=== PATIENT | female | born 1930 | race Caucasian/White ===

== ENCOUNTER → 2020-07-28 | Outpatient (CLI) | payer MEDICARE, OTHER ==
[~2020-07-28] MED LIST: ALPR0.255 PO; LEVO100T6 PO; ONDA4TAB7 PO
[2020-07-28 16:42] LABS: BASOPHILS % (AUTO) 0.7 % (0.0-5.0); EOSINOPHILS % (AUTO) 6.1 % (0.0-8.0); HEMATOCRIT 34.8 % (36-48); LYMPHOCYTES % (AUTO) 12.3 % (21.0-51.0); MEAN CORPUSCULAR HGB CONC 32.5 g/dL (32.0-36.0); MEAN CORPUSCULAR VOLUME 98.6 fL (79-99); MONOCYTES % (AUTO) 9.7 % (3.0-13.0); NEUTROPHILS % (AUTO) 70.7 % (40.0-77.0); PLATELET COUNT (AUTO) 257 K/uL (130-400); RED BLOOD CELL COUNT(AUTO) 3.53 MIL/uL (4.00-5.50); RED CELL DISTRIBUTION WIDTH 12.6 % (11.0-15.5); WHITE BLOOD COUNT (AUTO) 8.6 K/uL (4.8-10.8)
[2020-07-28 17:05] LABS: THYROID STIMULATING HORMONE 1.17 uIU/mL (0.36-3.74)
[2020-07-28 17:49] LABS: ERYTHROCYTE SEDIMENTATION RATE 55 MM/HR (0-30)
== END | disposition home or self-care (01) ==
LOC: LAB 13:01
PROVIDERS: ATTEND Family Medicine
DX: R61 Generalized hyperhidrosis (principal); R63.4 Abnormal weight loss; R64 Cachexia
CPT/HCPCS: 36415; 84439; 84443; 85025; 85651; 86480; 86701; 87390